=== PATIENT | female | born 1940 | race Caucasian/White ===

== ENCOUNTER → 2016-11-25 | Outpatient (CLI) | payer OTHER ==
[~2016-11-25] MED LIST: ALPR-411 PO; ASPI-427 PO; BUDE0.5S INH; CLOP1TAB15 PO; CRS/10 PO; CTP/1 PO; CYAN10005 PO; Centrum Silver PO; DOCU100C31 PO; DOXA1TAB88 PO; ERGO1CAP35 PO; FERR325T5 PO; FORM1NEB NEB; FRS/40 PO; GABA-112 PO; HMLI SC; HYDR-4717 PO; INSDGI SC; LEVO150T PO; LISI2.5T5 PO; MAGN400T6 PO; NITR0.4S UT; OMEGCAP2 PO; PRD/1 PO; PRLSR20 PO; TRAM-10 PO
== END | disposition home or self-care (01) ==
LOC: C.LABSPEC 17:20
PROVIDERS: ATTEND Physician Assistant
DX: N95.0 Postmenopausal bleeding (principal)